=== PATIENT | female | born 1960 | race Caucasian/White ===

== ENCOUNTER 2018-06-30 08:21 | Observation (INO) | payer MEDICAID ==
[~2018-06-30] VITALS: Ht 160 cm; Wt 73.0 kg
[2018-06-30 09:08] LABS: BASOPHILS % (AUTO) 0.4 % (0-1); EOSINOPHILS # (AUTO) 0.2 X10'3 (0-0.9); HEMATOCRIT 32.8 % (35.0-45.0); HEMOGLOBIN 11.1 g/dl (12.0-16.0); LYMPHOCYTES # (AUTO) 1.6 X10'3 (1.1-4.8); LYMPHOCYTES % (AUTO) 25.1 % (21-51); MEAN CORPUSCULAR HEMOGLOBIN 30.1 PG (27.0-31.0); MEAN CORPUSCULAR HGB CONC 33.7 g/dL (33.0-36.5); MEAN CORPUSCULAR VOLUME 89.2 FL (78-98); MEAN PLATELET VOLUME 8.5 FL (7.4-10.4); MONOCYTES # (AUTO) 0.4 X10'3 (0-0.9); MONOCYTES % (AUTO) 6.6 % (2-12); NEUTROPHILS # (AUTO) 4.2 X10'3 (1.8-7.7); NEUTROPHILS % (AUTO) 64.9 % (42-75); PLATELET COUNT 286 X10'3 (140-440); RED BLOOD COUNT 3.68 X10'6 (4.20-5.60); RED CELL DISTRIBUTION WIDTH 14.4 % (11.5-14.5); WHITE BLOOD COUNT 6.5 X10'3 (4.5-11.0)
[2018-06-30 09:13] LABS: ALANINE AMINOTRANSFERASE 36 U/L (12-78); ALBUMIN 3.3 G/DL (3.4-5.0); ALBUMIN/GLOBULIN RATIO 0.9 (1.1-1.5); ALKALINE PHOSPHATASE 89 IU/L (46-116); ANION GAP 7 (8-16); ASPARTATE AMINO TRANSFERASE 20 U/L (10-37); BILIRUBIN,TOTAL 0.1 MG/DL (0.1-1.0); BLOOD UREA NITROGEN 15 MG/DL (7-18); BUN/CREATININE RATIO 15.5 (6.6-38.0); CALCIUM 9.2 MG/DL (8.5-10.1); CHLORIDE 107 MMOL/L (99-107); CREATININE 0.97 MG/DL (0.40-0.90); GLUCOSE 118 MG/DL (70-104); POTASSIUM 3.8 MMOL/L (3.5-5.1); SODIUM 140 MMOL/L (135-145); TOTAL CARBON DIOXIDE 26.3 MMOL/L (24-32); TOTAL PROTEIN 6.8 G/DL (6.4-8.2); eGFR 59 ML/MIN
[2018-06-30] MEDS ORDERED: aspirin 81mg tab.chew PO ONE (09:25)
[2018-06-30] MEDS ORDERED: potassium chloride 10mEq CAPSULE.SA PO STA (09:29)
[2018-06-30] MEDS ORDERED: furosemide 10 MG/1 ML 10ml inj IV ONE (09:30)
[2018-06-30] MEDS ORDERED: potassium Cl 20 mEq SR tablet PO STA (09:32)
[2018-06-30] MEDS ORDERED: potassium Cl 20 mEq SR tablet PO PRN ×2 (10:05)
[2018-06-30] MEDS ORDERED: mag hydrox/Alum hydrox/simeth 30ml oral suspension PO PRN (10:05)
[2018-06-30] MEDS ORDERED: magnesium Cl slow-release 64mg tablet PO PRN (10:05)
[2018-06-30] MEDS ORDERED: potassium Cl 40MEQ/NS 500ml 500 ML IV PRN ×2 (10:05)
[2018-06-30] MEDS ORDERED: acetaminophen 325mg tablet PO PRN ×2 (10:05)
[2018-06-30] MEDS ORDERED: magnesium 2GM in 50ml NS 50 ML IV PRN (10:05)
[2018-06-30] MEDS ORDERED: magnesium hydroxide 30ml (MOM) UD suspension PO PRN (10:05)
[2018-06-30] MEDS ORDERED: magnesium 4gm in 100ml NS 100 ML IV PRN (10:05)
[2018-06-30] MEDS ORDERED: ondansetron/PF 4mg/2ml inj IV PRN (10:05)
[2018-06-30] MEDS ORDERED: FURO-150 PO ×2 (12:12→17:47)
[2018-06-30] MEDS ORDERED: LEVO125T PO (12:12)
--- NOTE | 2018-06-30 14:06 | NUR ---
per patient request, called Dr Adams asking if pt can be discharged from er as pt is feeling much better. pt currently on ra sats 96%, 119/77, 82, 17-20resp. MD will recheck pt at 1800 and decide from there
[2018-06-30 15:00] VITALS: BP 113/63
[2018-06-30] MEDS ORDERED: ASPI81TA52 PO (17:46)
--- NOTE | 2018-06-30 17:57 | NUR ---
[place] documentation: I have reviewed and agree with interventions, assessments performed and documented by LIBERTY Uribe. [place] Medication Administration: For this medication-pass time frame, medication were reviewed, dispensed, administered and documented per hospital policy by LIBERTY Uribe.
[2018-06-30 18:00] VITALS: BP 128/80
--- NOTE | 2018-06-30 18:16 | NUR ---
Problems reprioritized. Patient report given, questions answered & plan of care reviewed with LIBERTY Gordon. Patient discharge paperwork given to nurse.
--- NOTE | 2018-06-30 18:43 | NUR ---
[facility] called for patient to let them know that the patient's Lasix was changed from 20 mg everyday to 20 mg 2 times a day. Left Phone # for PCU and nurses name for any questions. Patient is pending discharge.
--- NOTE | 2018-06-30 18:46 | NUR ---
Patient in room PCU 3016. I have received report from Jeannette KOENIG and had the opportunity to ask questions and assume patient care.
[2018-06-30] MEDS ORDERED: furosemide 40mg/4ml inj IV ONE (19:15)
[2018-06-30] MEDS: furosemide 10 MG/1 ML 10ml inj IV SCH (20:00)
[2018-06-30 20:50] VITALS: BP 98/57
[2018-06-30 22:00] VITALS: BP 100/61
[2018-07-01 02:00] VITALS: BP 109/66
[2018-07-01 05:49] LABS: BASOPHILS % (AUTO) 0.7 % (0-1); EOSINOPHILS # (AUTO) 0.3 X10'3 (0-0.9); EOSINOPHILS % (AUTO) 4.6 % (0-6); HEMATOCRIT 38.5 % (35.0-45.0); LYMPHOCYTES # (AUTO) 1.9 X10'3 (1.1-4.8); LYMPHOCYTES % (AUTO) 30.9 % (21-51); MEAN CORPUSCULAR HEMOGLOBIN 30.1 PG (27.0-31.0); MEAN CORPUSCULAR HGB CONC 33.9 g/dL (33.0-36.5); MEAN CORPUSCULAR VOLUME 88.8 FL (78-98); MEAN PLATELET VOLUME 8.3 FL (7.4-10.4); MONOCYTES # (AUTO) 0.4 X10'3 (0-0.9); MONOCYTES % (AUTO) 6.1 % (2-12); NEUTROPHILS # (AUTO) 3.5 X10'3 (1.8-7.7); NEUTROPHILS % (AUTO) 57.7 % (42-75); PLATELET COUNT 319 X10'3 (140-440); RED BLOOD COUNT 4.33 X10'6 (4.20-5.60)
[2018-07-01 06:00] VITALS: BP 106/59
[2018-07-01 06:14] LABS: ALBUMIN 3.5 G/DL (3.4-5.0); ANION GAP 8 (8-16); BLOOD UREA NITROGEN 19 MG/DL (7-18); BUN/CREATININE RATIO 15.1 (6.6-38.0); CALCIUM 9.1 MG/DL (8.5-10.1); CHLORIDE 104 MMOL/L (99-107); CREATININE 1.26 MG/DL (0.40-0.90); GLUCOSE 100 MG/DL (70-104); MAGNESIUM 2.1 MG/DL (1.5-2.4); POTASSIUM 3.8 MMOL/L (3.5-5.1); SODIUM 140 MMOL/L (135-145); TOTAL CARBON DIOXIDE 28.3 MMOL/L (24-32); eGFR 44 ML/MIN
--- NOTE | 2018-07-01 06:15 | NUR ---
Patient in room PCU 3016. I have received report from lc laguerre and had the opportunity to ask questions and assume patient care.
[2018-07-01] MEDS ORDERED: levoTHYROXINE 125mcg tablet PO SCH (07:30)
[2018-07-01] MEDS ORDERED: K and/or MAG REPLACEMENT MC SCH (08:00)
[2018-07-01] MEDS ORDERED: aspirin 81mg tablet.DR PO SCH (08:00)
[2018-07-01] MEDS ORDERED: enoxaparin 40mg/0.4ml syringe SQ SCH (08:00)
[2018-07-01] MEDS: furosemide 10 MG/1 ML 10ml inj IV SCH (08:17)
[2018-07-01] MEDS ORDERED: metoprolol succinate 25mg (24-HOUR) SR. Tablet PO SCH ×2 (10:25→11:00)
[2018-07-01 11:00] VITALS: BP 103/67
[2018-07-01] MEDS ORDERED: METO-395 PO (11:20)
--- NOTE | 2018-07-01 16:00 | NUR ---
PROVIDED PATIENT WITH DISCHARGE INSTRUCTIONS WELL NEW PRESCRIPTION INFORMATION. PATIENT VERBALIZED UNDERSTANDING OF FOLLOW UP RECOMMENDATION WITH BOTH HER PRIMARY CARE DOCTOR WELL HER ELECTRICAL EQUIPMENT TESTER. PATIENT AWARE TO DATA WAREHOUSE SPECIALIST NEW PRESCRIPTION AT [facility] WELL TO INCREASE HOME LASIX TO TWICE A DAY. IV REMOVED, CATHETER INTACT, MINIMAL BLEEDING CLEAN GAUZE APPLIED AND SECURED WITH TAPE. PATIENT DENIES ANY FURTHER QUESTIONS OR CONCERNS. PATIENT PLANS TO BUY A HOME BP CUFF AND TAKE BLOOD PRESSURE AND PULSE DAILY BEFORE SHE TAKES HER MEDICATION AND TO CALL HER DOCTOR IF SBP (TOP NUMBER) IS LESS THAN 100 AND/OR IF HER PULSE IS LESS THAN 60. PATIENT MADE AWARE OF S/S OF LOW BLOOD PRESSURE (DIZZINESS, ETC). PATIENT ACCOMPANIED DOWN VIA WHEELCHAIR TO GO HOME VIA PRIVATE VEHICLE WITH HER FAMILY. ALL BELONGINGS ACCOUNTED FOR AND TAKEN WITH PATIENT.
== END 2018-07-01 15:57 | disposition home or self-care (01) ==
LOC: ER 08:22 → MED 3N 15:10 → PCU 3S 16:02 → CMPBEDREQ 19:40
PROVIDERS: ADMIT Hospitalist; ATTEND Hospitalist
DX: I11.0 Hypertensive heart disease with heart failure (principal); I50.43 Acute on chronic combined systolic (congestive) and diastolic (congestive) heart failure; R79.89 Other specified abnormal findings of blood chemistry; E03.9 Hypothyroidism, unspecified; I44.7 Left bundle-branch block, unspecified; F17.210 Nicotine dependence, cigarettes, uncomplicated; Z86.39 Personal history of other endocrine, nutritional and metabolic disease; Z98.890 Other specified postprocedural states; Z90.49 Acquired absence of other specified parts of digestive tract; Z79.82 Long term (current) use of aspirin; Z79.899 Other long term (current) drug therapy
CPT/HCPCS: 36415; 71045; 80048; 80053; 83735; 83880; 84443; 84484; 85025; 87070; 93005; 93306; 96372; 96374; 96376; 99284; G0378; J1940; J1650

== ENCOUNTER 2019-09-04 22:28 | Emergency (ER) | payer MEDICAID ==
[~2019-09-04] VITALS: Ht 160 cm; Wt 70.0 kg
[~2019-09-04 22:28] MED LIST: ASPI81TA52 PO; FURO-150 PO; LEVO125T PO; METO-395 PO
[2019-09-04] MEDS ORDERED: LOSA25TA41 PO (22:43)
[2019-09-04] MEDS ORDERED: CARV3.1244 PO (22:43)
[2019-09-04] MEDS ORDERED: POTA8CAP20 PO (22:43)
[2019-09-04] MEDS ORDERED: LEVO-146 PO (22:43)
[2019-09-04] MEDS ORDERED: FURO20TA4 PO (22:43)
--- NOTE | 2019-09-04 22:45 | NUR ---
Spoke with MD luana goldsmith to bilat lower lobes. to perla in order for IV lasix.
[2019-09-04] MEDS ORDERED: furosemide 10 MG/1 ML 10ml inj IV ONE (22:50)
[2019-09-04 23:03] LABS: BASOPHILS % (AUTO) 0.6 % (0-1); EOSINOPHILS # (AUTO) 0.2 X10'3 (0-0.9); EOSINOPHILS % (AUTO) 2.1 % (0-6); HEMOGLOBIN 11.9 g/dl (12.0-16.0); LYMPHOCYTES # (AUTO) 2.9 X10'3 (1.1-4.8); LYMPHOCYTES % (AUTO) 35.7 % (21-51); MEAN CORPUSCULAR HEMOGLOBIN 30.1 PG (27.0-31.0); MEAN CORPUSCULAR HGB CONC 33.1 g/dL (33.0-36.5); MEAN CORPUSCULAR VOLUME 90.9 FL (78-98); MEAN PLATELET VOLUME 8.6 FL (7.4-10.4); MONOCYTES # (AUTO) 0.4 X10'3 (0-0.9); MONOCYTES % (AUTO) 5.3 % (2-12); NEUTROPHILS # (AUTO) 4.6 X10'3 (1.8-7.7); NEUTROPHILS % (AUTO) 56.3 % (42-75); PLATELET COUNT 250 X10'3 (140-440); RED BLOOD COUNT 3.96 X10'6 (4.20-5.60); RED CELL DISTRIBUTION WIDTH 14.2 % (11.5-14.5); WHITE BLOOD COUNT 8.1 X10'3 (4.5-11.0)
--- NOTE | 2019-09-04 23:10 | NUR ---
PT HAD CALL LIGHT ON, SHE IS UP TO THE BR.
[2019-09-04 23:16] LABS: ALANINE AMINOTRANSFERASE 22 U/L (12-78); ALBUMIN 3.2 G/DL (3.4-5.0); ALBUMIN/GLOBULIN RATIO 0.9 (1.1-1.5); ALKALINE PHOSPHATASE 84 IU/L (46-116); ANION GAP 5 (8-16); ASPARTATE AMINO TRANSFERASE 15 U/L (10-37); BILIRUBIN,TOTAL 0.2 MG/DL (0.1-1.0); BLOOD UREA NITROGEN 20 MG/DL (7-18); BUN/CREATININE RATIO 16.8 (6.6-38.0); CALCIUM 8.9 MG/DL (8.5-10.1); CHLORIDE 109 MMOL/L (99-107); CREATININE 1.19 MG/DL (0.40-0.90); GLUCOSE 145 MG/DL (70-104); POTASSIUM 3.6 MMOL/L (3.5-5.1); SODIUM 141 MMOL/L (135-145); TOTAL CARBON DIOXIDE 27.5 MMOL/L (24-32); TOTAL PROTEIN 6.6 G/DL (6.4-8.2); eGFR 47 ML/MIN
[2019-09-04 23:23] LABS: TROPONIN I < 0.04 NG/ML (0.0-0.05)
[2019-09-04 23:28] LABS: PARTIAL THROMBOPLASTIN TIME 26 SECONDS (22-32)
--- NOTE | 2019-09-04 23:29 | NUR ---
SHE WAS PRETTY WINDED WHEN SHE GOT BACK FROM THE BR. SHE VOIDED ALOT SHE SAID.
[2019-09-04] MEDS ORDERED: FURO-150 PO (23:35)
[2019-09-04 23:54] VITALS: BP 110/70
== END 2019-09-04 23:57 | disposition home or self-care (01) ==
LOC: ER 22:29
DX: I50.9 Heart failure, unspecified (principal); I11.0 Hypertensive heart disease with heart failure; F17.200 Nicotine dependence, unspecified, uncomplicated; Z90.49 Acquired absence of other specified parts of digestive tract; Z98.890 Other specified postprocedural states; Z72.89 Other problems related to lifestyle; Z88.8 Allergy status to other drugs, medicaments and biological substances; Z79.899 Other long term (current) drug therapy
CPT/HCPCS: 36415; 71045; 80053; 83880; 84484; 85025; 85610; 85730; 93005; 96374; 99285; J1940

== ENCOUNTER 2023-08-18 20:07 | Emergency (ER) | payer MEDICAID ==
[~2023-08-18] VITALS: Ht 160 cm; Wt 75.0 kg
[~2023-08-18 20:07] MED LIST changes: -ASPI81TA52 PO; +CARV3.1244 PO; -FURO-150 PO; +FURO20TA4 PO; +LEVO-146 PO; -LEVO125T PO; +LOSA25TA41 PO; -METO-395 PO; +POTA8CAP20 PO
[2023-08-18 20:10] VITALS: TEMP 97.5
[2023-08-18] MEDS: LORazepam 1 MG tablet PO ONE (20:39)
[2023-08-18 20:46] LABS: BASOPHILS # (AUTO) 0.1 X10'3 (0-0.2); BASOPHILS % (AUTO) 0.6 % (0-1); EOSINOPHILS # (AUTO) 0.1 X10'3 (0-0.9); EOSINOPHILS % (AUTO) 0.6 % (0-6); HEMATOCRIT 35.8 % (35.0-45.0); HEMOGLOBIN 11.6 g/dl (12.0-16.0); LYMPHOCYTES # (AUTO) 2.6 X10'3 (1.1-4.8); MEAN CORPUSCULAR HEMOGLOBIN 31.1 PG (27.0-31.0); MEAN CORPUSCULAR HGB CONC 32.5 g/dL (33.0-36.5); MEAN CORPUSCULAR VOLUME 95.7 FL (78-98); MEAN PLATELET VOLUME 8.3 FL (7.4-10.4); MONOCYTES # (AUTO) 1.1 X10'3 (0-0.9); NEUTROPHILS # (AUTO) 9.7 X10'3 (1.8-7.7); NEUTROPHILS % (AUTO) 71.8 % (42-75); PLATELET COUNT 332 X10'3 (140-440); RED BLOOD COUNT 3.74 X10'6 (4.20-5.60); RED CELL DISTRIBUTION WIDTH 16.7 % (11.5-14.5); WHITE BLOOD COUNT 13.6 X10'3 (4.5-11.0)
[2023-08-18 21:07] LABS: ALBUMIN 3.3 G/DL (3.4-5.0); ANION GAP 12 (8-16); BLOOD UREA NITROGEN 26 MG/DL (7-18); BUN/CREATININE RATIO 23.4 (10.0-20.0); CALCIUM 9.3 MG/DL (8.5-10.1); CHLORIDE 103 MMOL/L (99-107); CREATININE 1.11 MG/DL (0.40-0.90); GLUCOSE 120 MG/DL (70-104); POTASSIUM 4.6 MMOL/L (3.5-5.1); SODIUM 137 MMOL/L (135-145); TOTAL CARBON DIOXIDE 22.2 MMOL/L (24-32); eCRCL 43 ML/MIN; eGFR 50 ML/MIN
[2023-08-18 21:33] LABS: PRO BRAIN NATRIURETIC PEPTIDE > 30000 PG/ML (0-125)
[2023-08-18] MEDS: furosemide 10 MG/1 ML 10ml inj IV ONE (22:15)
[2023-08-18] MEDS ORDERED: LORA-268 PO (23:52)
[2023-08-18] MEDS ORDERED: TEMA15CA5 PO (23:52)
[2023-08-18] MEDS: LORazepam 1 MG tablet PO PRN (23:53)
[2023-08-19 00:13] VITALS: BP 114/70; PULSE 88; RESP 22; O2SAT 97
== END 2023-08-19 00:14 | disposition home or self-care (01) ==
LOC: ER 20:08
DX: I11.0 Hypertensive heart disease with heart failure (principal); I50.9 Heart failure, unspecified; J44.9 Chronic obstructive pulmonary disease, unspecified; F15.90 Other stimulant use, unspecified, uncomplicated; Z88.8 Allergy status to other drugs, medicaments and biological substances; Z79.899 Other long term (current) drug therapy; Z90.49 Acquired absence of other specified parts of digestive tract; Z87.891 Personal history of nicotine dependence
CPT/HCPCS: 36415; 71045; 80048; 83880; 84484; 85025; 93005; 96374; 99285; J1940

== ENCOUNTER 2023-08-20 10:53 | Emergency (ER) | payer MEDICAID ==
[~2023-08-20] VITALS: Ht 160 cm; Wt 75.0 kg
[~2023-08-20 10:53] MED LIST changes: +LORA-268 PO; +TEMA15CA5 PO
[2023-08-20 11:10] VITALS: TEMP 97.6
[2023-08-20 11:35] LABS: BASOPHILS # (AUTO) 0.1 X10'3 (0-0.2); BASOPHILS % (AUTO) 0.8 % (0-1); EOSINOPHILS # (AUTO) 0.1 X10'3 (0-0.9); EOSINOPHILS % (AUTO) 0.8 % (0-6); LYMPHOCYTES # (AUTO) 2.5 X10'3 (1.1-4.8); MONOCYTES # (AUTO) 0.6 X10'3 (0-0.9)
[2023-08-20 11:38] LABS: HEMATOCRIT 41.1 % (35.0-45.0); HEMOGLOBIN 12.9 g/dl (12.0-16.0); LYMPHOCYTES % (AUTO) 22.9 % (21-51); MEAN CORPUSCULAR HGB CONC 31.4 g/dL (33.0-36.5); MEAN CORPUSCULAR VOLUME 98.6 FL (78-98); MEAN PLATELET VOLUME 8.6 FL (7.4-10.4); MONOCYTES % (AUTO) 5.8 % (2-12); NEUTROPHILS # (AUTO) 7.5 X10'3 (1.8-7.7); NEUTROPHILS % (AUTO) 69.7 % (42-75); PLATELET COUNT 371 X10'3 (140-440); RED BLOOD COUNT 4.17 X10'6 (4.20-5.60); WHITE BLOOD COUNT 10.7 X10'3 (4.5-11.0)
[2023-08-20 11:49] LABS: ALANINE AMINOTRANSFERASE 70 U/L (12-78); ALBUMIN 3.3 G/DL (3.4-5.0); ALBUMIN/GLOBULIN RATIO 0.8 (1.1-1.5); ALKALINE PHOSPHATASE 114 IU/L (46-116); ANION GAP 12 (8-16); ASPARTATE AMINO TRANSFERASE 27 U/L (10-37); BILIRUBIN,TOTAL 0.8 MG/DL (0.1-1.0); BLOOD UREA NITROGEN 26 MG/DL (7-18); BUN/CREATININE RATIO 23.9 (10.0-20.0); CHLORIDE 101 MMOL/L (99-107); CREATININE 1.09 MG/DL (0.40-0.90); GLUCOSE 122 MG/DL (70-104); POTASSIUM 4.5 MMOL/L (3.5-5.1); SODIUM 136 MMOL/L (135-145); TOTAL CARBON DIOXIDE 23.3 MMOL/L (24-32); TOTAL PROTEIN 7.2 G/DL (6.4-8.2); eCRCL 44 ML/MIN; eGFR 51 ML/MIN
[2023-08-20 12:25] LABS: PRO BRAIN NATRIURETIC PEPTIDE > 30000 PG/ML (0-125)
[2023-08-20] MEDS ORDERED: enoxaparin 100mg/ml syringe SUBCUT ONE (12:25)
[2023-08-20] MEDS: furosemide 10 MG/1 ML 10ml inj IV ONE (14:01)
[2023-08-20] MEDS: aspirin 325mg tablet PO ONE (14:02)
[2023-08-20] MEDS: enoxaparin 60mg/0.6ml syringe SUBCUT ONE (14:03)
[2023-08-20 16:10] VITALS: BP 125/72; PULSE 78; RESP 20; O2SAT 95
== END 2023-08-20 16:15 | disposition home or self-care (01) ==
LOC: ER 10:53
DX: I11.0 Hypertensive heart disease with heart failure (principal); I50.9 Heart failure, unspecified; J44.9 Chronic obstructive pulmonary disease, unspecified; Z88.8 Allergy status to other drugs, medicaments and biological substances; Z79.899 Other long term (current) drug therapy; Z87.891 Personal history of nicotine dependence
CPT/HCPCS: 36415; 71046; 80053; 83880; 84484; 85025; 93005; 96372; 96374; 99285; J1650; J1940

== ENCOUNTER 2023-08-28 11:13 | Emergency (ER) | payer MEDICAID ==
[~2023-08-28] VITALS: Ht 160 cm; Wt 65.3 kg
[2023-08-28 11:14] VITALS: TEMP 97.3
[2023-08-28 13:12] LABS: ALBUMIN 3.5 G/DL (3.4-5.0); ANION GAP 10 (8-16); BLOOD UREA NITROGEN 17 MG/DL (7-18); BUN/CREATININE RATIO 16.8 (10.0-20.0); CALCIUM 9.1 MG/DL (8.5-10.1); CHLORIDE 99 MMOL/L (99-107); CREATININE 1.01 MG/DL (0.40-0.90); GLUCOSE 103 MG/DL (70-104); POTASSIUM 3.4 MMOL/L (3.5-5.1); PRO BRAIN NATRIURETIC PEPTIDE 6337 PG/ML (0-125); SODIUM 136 MMOL/L (135-145); TOTAL CARBON DIOXIDE 27.3 MMOL/L (24-32); eCRCL 48 ML/MIN; eGFR 56 ML/MIN
[2023-08-28 13:37] VITALS: BP 109/76; PULSE 67; RESP 18; O2SAT 96
== END 2023-08-28 14:15 | disposition home or self-care (01) ==
LOC: ER 11:13
DX: Z00.8 Encounter for other general examination (principal); I11.0 Hypertensive heart disease with heart failure; I50.9 Heart failure, unspecified; E07.9 Disorder of thyroid, unspecified; F15.90 Other stimulant use, unspecified, uncomplicated; Z90.49 Acquired absence of other specified parts of digestive tract; Z95.0 Presence of cardiac pacemaker; Z88.8 Allergy status to other drugs, medicaments and biological substances; Z79.899 Other long term (current) drug therapy
CPT/HCPCS: 36415; 71045; 80048; 83880; 99284

== ENCOUNTER 2023-09-09 10:04 | Outpatient (CLI) | payer MEDICAID | END 2023-09-09 23:59 | disposition home or self-care (01) | LOC: CARD DIAG 10:04 | PROVIDERS: ATTEND Family Medicine | DX: I08.8 Other rheumatic multiple valve diseases (principal); R06.09 Other forms of dyspnea | CPT/HCPCS: 71046; 93306 ==